=== PATIENT | male | born 1965 | race Caucasian/White ===

== ENCOUNTER 2016-05-04 23:19 | Inpatient (IN) | payer BC ==
--- NOTE | ~2016-05-04 | DS ---
Discharge Summary [facility] [address] [place]. [address] NAME: VA HERNANDEZ : 61 STATUS : DIS Yony PAT#: [id number] AGE: 51 ADM/REG DATE : 05/04/16 MR#: [id number] REPORT SERV DATE: 05/07/16 DICTATED BY: DATE: REPORT STATUS : Draft TRANSCRIBED BY: MODL DATE: 05/06/16 ADMISSION DATE: 05/04/2016 DISCHARGE DATE: 05/06/2016 The patient was admitted to the [facility] Hospitalist Service, attending doctor, Dr. Augustine Corona. CONSULTANTS: Dr. Andrea Hall of the [facility]. DISCHARGE DIAGNOSES: 1. Atrial flutter with rapid ventricular response, symptomatic-status post spontaneous conversion to normal sinus rhythm, on 05/05/2016. 2. Uncontrolled diabetes mellitus type 2-hemoglobin A1c 9.9. With past history of hypoglycemic episodes, on medications, the patient is reluctant to start medication at present, but will follow up with primary care provider. 3. Sleep apnea-compliant with CPAP. IMAGING: Portable chest x-ray x2 on 05/04/2016 showed no acute cardiopulmonary process. PERTINENT LABS: Multiple troponins negative. BNP negative. TSH normal. Hemoglobin A1c 9.9. Potassium and magnesium normal. Creatinine normal. Blood glucose values ranging from 170 to 270s. BRIEF HISTORY: For full details, please see the previously dictated history of present illness by Dr. Braden Chun on 05/05/2016. This is a 51-year-old white male with minimal medical history, who presented twice to the emergency department on 05/04/2016 with chief complaint of palpitations. He initially was seen and diagnosed with atrial flutter, improved on Cardizem, and was discharged on oral Cardizem and Eliquis, to follow up with Cardiology. He went and got that prescription filled, but shortly after his symptoms worsened, and he was experiencing increasing shortness of breath, dizziness, nausea, diaphoresis with palpitations, and so he came back to the emergency department and was found to have a heart rate of 146. He was admitted to the Hospitalist Service with Cardiology consultation. HOSPITAL COURSE: The patient was placed on Cardizem drip and continued on oral Cardizem and Eliquis. He was seen by Cardiology on the 05/05/2016 with plans for a HOA and cardioversion on the 05/06/2016, however, around 7 p.m. on the 05/05/2016, he spontaneously converted to a normal sinus rhythm. He did have an asymptomatic 7-second pause associated with this. Cardiology was aware and stated that this was to be expected given the doses of Cardizem that he was on and this can occur commonly with spontaneous conversion. The patient remained in a normal sinus rhythm on the morning of the 05/06/2016. His IV Cardizem has been discontinued and he was on oral Cardizem alone, at 360 mg daily, but with heart rates ranging from 45 to 52, and some associated dizziness. He was seen by Cardiology again, and transitioned to metoprolol 12.5 mg p.o. twice a day, for closed outpatient followup within two weeks with Dr. Andrea Haines. He is continued on Eliquis as well. Discharge Summary [address] [address] NAME: VA HERNANDEZ : 61 STATUS : DIS Yony PAT#: [id number] AGE: 51 ADM/REG DATE : 05/04/16 MR#: [id number] REPORT SERV DATE: 05/07/16 DICTATED BY: DATE: REPORT STATUS : Draft TRANSCRIBED BY: MODJohana DATE: 05/06/16 Regarding blood sugars, the patient had sugars ranging from 170 to 270 during the admission. He reported that he has diet controlled diabetes, but hemoglobin A1c was found to be 9.9. In 30 minutes discussion with he and his , there is definitely room for improvement and compliance to a diabetic diet, and also room for improvement in terms of exercise and maintenance of ideal body weight. The patient has had some adverse hypoglycemic episodes associated with prior oral medications and was reluctant to start something currently, but stated that he would follow up with primary care provider, Dr. Valerie Benjamin within the next one to two weeks, for referral for diabetes education, possibly a new glucometer, and to further discuss initiating any oral medications for uncontrolled diabetes. DISCHARGE DISPOSITION: To home with his with no specific activity or dietary restrictions, followup with Dr. Valerie Benjamin within one to two weeks and Dr. Haines within two weeks, for possible outpatient Holter monitor. DISCHARGE MEDICATIONS: Include metoprolol 12.5 mg p.o. twice a day, Eliquis 5 mg p.o. b.i.d. AKNahum/BHAKTI Augustine Corona M.D. / [id number] CC: Lynn Serra M.D.
--- NOTE | ~2016-05-04 | HP ---
History And Physical [facility] [address] [place]. [address] NAME: VA CARPIO : 61 STATUS : ADM Yony PAT#: [id number] AGE: 51 ADM/REG DATE : 05/04/16 MR#: [id number] REPORT SERV DATE: 05/05/16 DICTATED BY: PRABHJOT VELA DATE: 05/05/16 REPORT STATUS : Draft TRANSCRIBED BY: MODL DATE: 05/05/16 DATE OF ADMISSION: 05/04/2016 POINT OF ENTRY: [facility] Emergency Department. PRIMARY CARE PHYSICIAN: Valerie Benjamin. CHIEF COMPLAINT: Palpitations. HISTORY OF PRESENT ILLNESS: Mr. Carpio is a 50-year-old gentleman with a history of obstructive sleep apnea, on CPAP therapy as well as history of nxj-svtzlky-fvxuelwmn diabetes mellitus type 2 this is currently diet controlled who presents to the emergency department today with a three-day history of palpitations. The patient states his palpitations began on . They have been associated with some night sweats as well as some vague sensation of shortness of breath. The palpitations became more persistent in nature prompting his presentation to the Emergency Department earlier on Friday. Then he received a bolus of diltiazem with good heart rate control and was discharged to home with a prescription for oral diltiazem as well as Eliquis. Upon returning home, the palpitations while still well better controlled and intermittent while in the ER became much more severe and persistent this evening prompting his re-presentation back to the emergency department. Initial evaluation in the emergency department revealed a heart rate of 146. EKG shows atrial flutter with rapid ventricular response. Labs notable for a blood sugar of 324. The patient was started on diltiazem infusion with good heart rate control. COMPREHENSIVE REVIEW OF SYSTEMS: Otherwise negative unless listed in history of illness. Particularly, he denies any recent fevers, night sweats, chills, chest pain, cough, sputum production, abdominal pain, nausea, vomiting, diarrhea, constipation, dysuria, lower extremity edema, melena, hematochezia, or hemoptysis. PREVIOUS MEDICAL HISTORY: 1. Obstructive sleep apnea, on CPAP therapy. 2. Remote history of lzr-ooyjvth-musywcmlh diabetes mellitus type 2, now diet controlled off medications secondary to hypoglycemic response. SURGICAL HISTORY: 1. Left thumb surgery. 2. UPPP. 3. Right knee arthroscopy. ALLERGIES: NO KNOWN DRUG ALLERGIES. HOME MEDICATIONS: None prior to today. During his previous ER visit, he was given prescription for History And Physical [address] [place]. [address] NAME: VA CARPIO : 61 STATUS : ADM Yony PAT#: [id number] AGE: 51 ADM/REG DATE : 05/04/16 MR#: [id number] REPORT SERV DATE: 05/05/16 DICTATED BY: PRABHJOT VELA DATE: 05/05/16 REPORT STATUS : Draft TRANSCRIBED BY: MODJohana DATE: 05/05/16 1. Eliquis 5 mg b.i.d. 2. Cardizem 360 mg daily. SOCIAL HISTORY: Denies any tobacco, alcohol, or illicit. Is a former smoker, quit greater than 4 years ago. FAMILY MEDICAL HISTORY: Mother with breast cancer. Father with Alzheimer's dementia. Siblings with history of breast cancer as well. LABS AND IMAGIN. White count 6.8, hemoglobin 15.2, hematocrit 43.1, platelet count is a 197, and INR is 1.0. 2. Sodium is 138, potassium 4.1, chloride 104, carbon dioxide 24, BUN 15, creatinine 1.09, glucose is 324, calcium is 8.9, protein is 7.3, albumin is 3.6, bilirubin is 0.3, ALT 55, AST 29, alkaline phosphatase is 104, and magnesium is 2.0. 3. Troponin less than 0.02. 4. TSH is 2.49. 5. Chest x-ray per my review shows no acute cardiopulmonary abnormality. 6. EKG per my review shows atrial flutter with rapid ventricular response. Heart rate of 120. 7. Telemetry per my review shows atrial flutter with classic sawtooth waves. PHYSICAL EXAMINATION: VITAL SIGNS: Temperature is 97.2 degrees Fahrenheit, pulse is 146, respirations 18, saturating 98% on room air, and blood pressure 120/90. On recheck, pulses are now between 80s to 90s on a diltiazem infusion 15 mg/hour. GENERAL: The patient is awake, alert, in no acute distress. Resting comfortably. He is a well-developed, well-nourished, male. HEENT: Atraumatic and normocephalic. Moist mucous membranes. Pupils are equal, round, and reactive to light and accommodation. Extraocular eye movements are intact. No scleral icterus. NECK: No jugular venous distention. No carotid bruits. CARDIAC: Irregularly irregular rate and rhythm. No murmurs or gallops. Normal S1, S2. LUNGS: Clear to auscultation bilaterally. No wheezes, rhonchi, or crackles. ABDOMEN: Soft, nontender, and nondistended. Good bowel sounds. No rebound, guarding, or rigidity. EXTREMITIES: Warm, perfused. No cyanosis, clubbing, or edema. SKIN: Warm and dry. PSYCH: Affect appropriate. NEURO: Alert and oriented x3. Cranial nerves II through XII grossly intact. Speech is normal. Gait not assessed. ASSESSMENT AND PLAN: Mr. Carpio is a 50-year-old gentleman who presents with a few day history of palpitations, found to have atrial fibrillation versus atrial flutter with rapid ventricular response. PROBLEM LIST: History And Physical [address] [address] NAME: VA CARPIO : 61 STATUS : ADM Yony PAT#: [id number] AGE: 51 ADM/REG DATE : 05/04/16 MR#: [id number] REPORT SERV DATE: 05/05/16 DICTATED BY: PRABHJOT VELA DATE: 05/05/16 REPORT STATUS : Draft TRANSCRIBED BY: BHAKTI DATE: 05/05/16 1. Atrial flutter with rapid ventricular response. 2. Hyperglycemia. PLAN: 1. Atrial flutter with rapid ventricular response. We will place the patient on diltiazem infusion per protocol. Continue the patient's home Eliquis as well as oral diltiazem. We will check an echocardiogram as well as consult Cardiology for assistance. Should the patient not convert on a diltiazem infusion, he may need cardioversion. 2. Hyperglycemia. The patient does admit to previous history of apw-lebrbvr-qtdmznzrj diabetes mellitus type 2, was previously placed on Actos and metformin many years ago; however, this was discontinued secondary to severe hypoglycemia at the end of the day. It has now been diet controlled. We will check an A1c, place the patient on level 1 insulin sliding scale. Should the A1c be elevated, he may need to be placed back on some low level of oral hypoglycemic medication. 3. DVT prophylaxis. The patient started on Eliquis. 4. Code status. The patient wished to be full code. JCKathleen/MODL Prabhjot Vela MD / [id number] CC: Lynn Lo
--- NOTE | ~2016-05-04 | CN ---
Consultation Report [facility] [address] [place]. [address] NAME: VA HERNANDEZ : 61 STATUS : ADM Yony PAT#: [id number] AGE: 51 ADM/REG DATE : 05/04/16 MR#: [id number] REPORT SERV DATE: 05/05/16 DICTATED BY: ZOILA HAINES DATE: 05/05/16 REPORT STATUS : Draft TRANSCRIBED BY: MODL DATE: 05/05/16 DATE OF CONSULTATION: 05/05/2016 CHIEF COMPLAINT: Palpitations and dyspnea. HISTORY OF PRESENT ILLNESS: A 51-year-old male without a past cardiac history but with diet- controlled diabetes mellitus who presents to the emergency department with a 4-day history of palpitations. Patient was noted to be in atrial flutter with a rapid ventricular rate. Rate was controlled with intravenous diltiazem and discharged home with oral Eliquis and oral diltiazem. After returning home, he developed recurrent and more significant palpitations, racing, and generalized weakness. Returned to the emergency department. Rate was controlled with intravenous diltiazem and admitted. Currently in recurrent atrial flutter. Currently asymptomatic. Feels well. Denies chest pain with exertion. Denies dyspnea on exertion. Denies previous palpitations, presyncope, or syncope. Rare alcohol use. No history of illicit drug use. No dullness. No recent skot-pgx-qwarksh medications. 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 Strenuous intermittent exertion without previous symptoms. PAST MEDICAL HISTORY: 1. Obstructive sleep apnea, on CPAP, with previous UPPP. 2. Type 2 diabetes mellitus, reportedly diet-controlled. 3. History of hypoglycemia on medications remotely. PAST SURGICAL HISTORY: 1. UPPP. 2. Right knee arthroplasty. 3. Surgery of the left thumb. ALLERGIES: NO KNOWN DRUG ALLERGIES. HOME MEDICATIONS: None prior to emergency department visit. SOCIAL HISTORY: Rare alcohol use. Former smoker. Denies tobacco for 4 years. Prior to that time, smoking approximately 1 pack of cigarettes per day for at least 20 years. FAMILY HISTORY: Noncontributory with no prior cardiovascular disease in the family. LABORATORY DATA: Sodium 138, potassium 4.1, chloride 104, BUN 15, creatinine 1.09, glucose 324. WBC 6.5, hemoglobin 15.2, hematocrit 43.1, and platelets 197,000. Troponin 0.02. Beta-natriuretic peptide 92. TSH normal at 2.49. Liver function tests within normal limits. Consultation Report [facility] [id number] [place]. [address] NAME: VA HERNANDEZ : 61 STATUS : ADM Yony PAT#: [id number] AGE: 51 ADM/REG DATE : 05/04/16 MR#: [id number] REPORT SERV DATE: 05/05/16 DICTATED BY: ZOILA HAINES DATE: 05/05/16 REPORT STATUS : Draft TRANSCRIBED BY: BHAKTI DATE: 05/05/16 EKG: Atrial flutter with rapid ventricular rate. Telemetry: Currently atrial fibrillation with controlled ventricular rate. IMPRESSION: Atrial flutter with rapid ventricular rate. No obvious etiology. Echocardiogram ordered. Begin diabetic diet. The patient is adequately rate controlled on intravenous diltiazem. We will make the patient n.p.o. for tonight. Plan for HOA cardioversion in the a.m. The risks, benefits, and alternatives of the procedure have been discussed with the patient. Complications including but not limited to , stroke, myocardial infarction, superficial burn to the chest, life-threatening ventricular arrhythmia, asystole, and complications of conscious sedation including hypotension and respiratory failure have been discussed with the patient. The patient voices understanding of the potential risks and desires to proceed. Thank you for the opportunity to see the patient in consultation. VENTURA/BHAKTI Lluvia Haines M.D. / [id number] CC: Lynn Serra
[2016-05-04 23:28] LABS: PROTIME (NOT ORD) 12.9 SEC (12.0-14.5)
[2016-05-04] MEDS ORDERED: CARDIZEM LA360 MG PO (23:29)
[2016-05-04] MEDS ORDERED: ELIQUIS 5 MG TAB5 MG PO (23:29)
[2016-05-04 23:36] LABS: BASOPHILS 0.6 %; BASOPHILS ABSOLUTE 0.04 10/3/uL (0.0-0.16); EOSINOPHILS 2.3 %; EOSINOPHILS ABSOLUTE 0.15 10/3/uL (0.0-0.53); ER CBC TAT 0 Hrs 20 Mins; HEMATOCRIT 43.1 % (40.0-51.0); HEMOGLOBIN 15.2 g/dL (13.6-17.8); IMMATURE GRANULOCYTES 0.2 %; IMMATURE GRANULOCYTES ABSOLUTE 0.01 10/3/uL (0.0-0.11); LYMPHOCYTES 37.1 %; LYMPHOCYTES ABSOLUTE 2.39 10/3/uL (0.67-4.30); MEAN CORPUS HGB CONC 35.3 g/dL (32.0-36.0); MEAN CORPUSCULAR HEMOGLOB 32.4 pg (26.0-34.0); MEAN CORPUSCULAR VOLUME 91.9 fL (80-100); MEAN PLATELET VOLUME 9.6 fL (9.2-13.0); MONOCYTES 9.5 %; MONOCYTES ABSOLUTE 0.61 10/3/uL (0.21-1.20); NEUTROPHILS 50.3 %; NEUTROPHILS ABSOLUTE 3.25 10/3/uL (2.02-8.40); PLATELET COUNT 197 10/3/uL (150-400); RBC DISTRIBUTION WIDTH 12.7 % (12.0-16.0); RED CELL COUNT 4.69 10/6/uL (4.7-6.1); WHITE BLOOD CELLS 6.5 10/3/uL (4.5-10.5)
[2016-05-04 23:40] LABS: MANUAL DIFF NO %
[2016-05-04 23:46] LABS: ALBUMIN 3.6 G/DL (3.5-5.0); ALKALINE PHOSPHATASE 104 U/L (45-117); BUN (BLOOD UREA NITROGEN) 15 MG/DL (6-23); CALCIUM, SERUM 8.9 MG/DL (8.5-10.4); CHLORIDE, SERUM 104 MMOL/L (96-112); CO2 (CARBON DIOXIDE) 24 MMOL/L (24-34); CREATININE 1.09 MG/DL (0.70-1.30); GFR AFRICAN AMERICAN 90 ML/MIN (>=60); GFR NON AFRICAN AMERICAN 78 ML/MIN (>=60); GLOBULIN 3.7 G/DL (2.5-4.1); GLUCOSE, SERUM 324 MG/DL (60-99); POTASSIUM, SERUM 4.1 MMOL/L (3.5-5.3); SGPT(ALT) 55 U/L (5-65); SODIUM, SERUM 138 MMOL/L (135-148); TOTAL BILIRUBIN 0.3 MG/DL (0-1.2); TOTAL PROTEIN 7.3 G/DL (6.0-8.5); TROPONIN I 0.02 NG/ML (<0.05)
[2016-05-04 23:47] LABS: SGOT(AST) 29 U/L (5-40)
[2016-05-05 02:11] LABS: B NATRIURETIC PEPTIDE (BNP) 91.5 PG/ML (< 100.0)
[2016-05-05 13:14] LABS: GLYCOHEMOGLOBIN (HbA1c) 9.9 % (4.7-6.1)
[2016-05-06 05:40] LABS: BASOPHILS 0.6 %; BASOPHILS ABSOLUTE 0.04 10/3/uL (0.0-0.16); EOSINOPHILS 2.4 %; EOSINOPHILS ABSOLUTE 0.16 10/3/uL (0.0-0.53); HEMATOCRIT 41.8 % (40.0-51.0); HEMOGLOBIN 14.7 g/dL (13.6-17.8); IMMATURE GRANULOCYTES 0.1 %; IMMATURE GRANULOCYTES ABSOLUTE 0.01 10/3/uL (0.0-0.11); LYMPHOCYTES 36.2 %; LYMPHOCYTES ABSOLUTE 2.42 10/3/uL (0.67-4.30); MEAN CORPUS HGB CONC 35.2 g/dL (32.0-36.0); MEAN CORPUSCULAR HEMOGLOB 32.2 pg (26.0-34.0); MEAN CORPUSCULAR VOLUME 91.5 fL (80-100); MONOCYTES 8.5 %; MONOCYTES ABSOLUTE 0.57 10/3/uL (0.21-1.20); NEUTROPHILS 52.2 %; NEUTROPHILS ABSOLUTE 3.49 10/3/uL (2.02-8.40); PLATELET COUNT 192 10/3/uL (150-400); RBC DISTRIBUTION WIDTH 12.6 % (12.0-16.0); RED CELL COUNT 4.57 10/6/uL (4.7-6.1); WHITE BLOOD CELLS 6.7 10/3/uL (4.5-10.5)
[2016-05-06 05:41] LABS: BUN (BLOOD UREA NITROGEN) 13 MG/DL (6-23); CALCIUM, SERUM 8.6 MG/DL (8.5-10.4); CHLORIDE, SERUM 104 MMOL/L (96-112); CO2 (CARBON DIOXIDE) 25 MMOL/L (24-34); CREATININE 0.98 MG/DL (0.70-1.30); GFR AFRICAN AMERICAN 102 ML/MIN (>=60); GFR NON AFRICAN AMERICAN 88 ML/MIN (>=60); POTASSIUM, SERUM 4.1 MMOL/L (3.5-5.3); SODIUM, SERUM 140 MMOL/L (135-148)
[2016-05-06 05:43] LABS: GLUCOSE, SERUM 219 MG/DL (60-99)
[2016-05-06 05:46] LABS: MANUAL DIFF NO %
[2016-05-06] MEDS ORDERED: LOP25 PO (12:40)
[2016-11-14] MEDS ORDERED: ASA5GR PO (12:19)
[2016-11-14] MEDS ORDERED: GLUCOPHXR7 PO (12:20)
[2016-11-14] MEDS ORDERED: PRIN2.5 PO (12:22)
[2016-11-14] MEDS ORDERED: MULTIPLE VIT PO (12:22)
[2016-11-14] MEDS ORDERED: ENDOCET1 TAB PO (12:24)
== END 2016-05-06 13:38 | disposition home or self-care (01) | DRG 310 ==
LOC: ER 23:19 → CDU1 23:59 → 5NO 05-05 02:03
PROVIDERS: Emergency Medicine; Internal Medicine Cardiovascular Disease
DX: I48.92 Unspecified atrial flutter (principal); E11.65 Type 2 diabetes mellitus with hyperglycemia; Z99.81 Dependence on supplemental oxygen; G47.33 Obstructive sleep apnea (adult) (pediatric); Z87.891 Personal history of nicotine dependence
CPT/HCPCS: 71010; 80048; 80053; 82962; 83036; 83735; 83880; 84443; 84484; 85025; 85610; 85730; 93005; 96365; 96366; 96374; 96376; 99285; 99291; A9270-GY; G0378